=== PATIENT | male | born 2000 | race Caucasian/White ===

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

== ENCOUNTER 2021-04-11 21:29 | Emergency (ER) | payer OTHER ==
[~2021-04-11] VITALS: Ht 182.9 cm; Wt 127.0 kg
[2021-04-11 21:44] VITALS: BP 140/64
--- NOTE | 2021-04-11 21:44 | NUR ---
TO BED AMBULATORY
--- NOTE | 2021-04-11 21:54 | NUR ---
Dr. Yadav with pt for MSE
[2021-04-11] MEDS ORDERED: METH750T5 PO (22:01)
[2021-04-11] MEDS ORDERED: IBUP-2213 PO (22:01)
--- NOTE | 2021-04-11 22:05 | NUR ---
no nursing intervention ordered by Dr. Yadav.
--- NOTE | 2021-04-11 22:11 | NUR ---
d/c with VSS. d/c education given. opportunity to ask questions given. rx of robaxin and motrin given. encouraged pt to follow up with PMD
== END 2021-04-11 22:11 | disposition home or self-care (01) ==
LOC: MED 21:29
DX: S39.012A Strain of muscle, fascia and tendon of lower back, initial encounter (principal); X50.0XXA Overexertion from strenuous movement or load, initial encounter; Y93.89 Activity, other specified; Y92.89 Other specified places as the place of occurrence of the external cause; Y99.8 Other external cause status
CPT/HCPCS: 99283

== ENCOUNTER 2021-07-02 17:26 | Emergency (ER) | payer OTHER ==
[~2021-07-02] VITALS: Ht 185.4 cm; Wt 133.9 kg
[~2021-07-02 17:26] MED LIST: IBUP-2213 PO; METH750T5 PO
[2021-07-02 18:51] VITALS: BP 148/101
--- NOTE | 2021-07-02 18:56 | NUR ---
pt to jennifer thorpe
--- NOTE | 2021-07-02 19:20 | NUR ---
SEEN AND EXAMINED BY WILL
[2021-07-02] MEDS ORDERED: IBUPROFEN 600 MG TAB PO ONE (19:25)
[2021-07-02] MEDS ORDERED: IBUP-2213 PO (20:49)
[2021-07-02 22:58] VITALS: BP 148/101
--- NOTE | 2021-07-02 22:58 | NUR ---
Patient discharged with v/s stable. Written and verbal after care instructions given and explained. Patient verbalized understanding. Ambulatory with steady gait. All questions addressed prior to discharge. Advised to follow up with PMD.
== END 2021-07-02 21:45 | disposition home or self-care (01) ==
LOC: MED 17:26
DX: M77.12 Lateral epicondylitis, left elbow (principal)
CPT/HCPCS: 73080; 99283